=== PATIENT | male | born 1960 | race Caucasian/White ===

== ENCOUNTER → 2019-08-12 10:45 | Outpatient (BNVA) | payer OTHER, SELFPAY | PROVIDERS: Family Provider Nurse Practitioner Family; PCP Nurse Practitioner Family; Visit Provider Registered Nurse | DX: I10 Essential (primary) hypertension (principal); E78.5 Hyperlipidemia, unspecified; R20.0 Anesthesia of skin; R07.9 Chest pain, unspecified; J30.2 Other seasonal allergic rhinitis | CPT/HCPCS: 80053; 80061; 85025 ==

== ENCOUNTER 2020-08-17 10:33 | Outpatient (CLI) | payer OTHER, SELFPAY ==
[2020-08-17 10:48] VITALS: BMI 20.4
--- NOTE | 2020-08-17 10:49 | ECG_ITS ---
[facility] Test Date: 2020-08-17 Pat Name: Navdeep Tomlin Department: Room: Gender: Male Warehouse Selector: Columba Lopez : 1960 Requested By: Kavita Williamson Order Number: [id number] Marla MD: Kavita Williamson M.D. Interpretive Statements NAME OF STUDY: TREADMILL STRESS ECHOCARDIOGRAM INDICATION: Chest Pain Baseline blood pressure of 120/81 mm Hg, heart rate 80 beats per minute and oxygen saturation 97%. EKG showed normal sinus rhythm with artifact with possible old anteroseptal infarct. The patient exercised for 6 minutes 35 seconds on a standard Sunil protocol. Patient attained a maximum heart rate of 143 beats per minute(90% of the maximum predicted heart rate) with a blood pressure at the peak exercise of 150/86 mm Hg and oxygen saturation 98%. The EKG at the peak exercise revealed sinus tachycardia with no significant ST-T wave changes. Artifact throughout exercise. Patient did not have any chest pain or any significant arrhythmis with the exercise. Study was terminated due to exertional fatigue and shortness of breath. During the recovery phase, there were no new changes. PACs noted in recovery. Blood pressure at the end of the recovery phase was 107/75 mm Hg with a heart rate of 84 beats per minute. CONCLUSION: 1. Normal EKG response to treadmill exercise. 2. No significant exercise-induced chest pain or cardiac arrhythmia. 3. Good exercise tolerance, attained a maximum of 10.2 METs. Maximum VO2 of 35.7 mL/kg/min. 4. Baseline normal blood pressure with blunted response to exercise. 5. Echocardiographic portion of the study will be documented separately. Electronically Signed On 08-18-2020 18:00:40 CDT by Kavita Williamson M.D. [id number]
--- NOTE | 2020-08-17 11:34 | USCV_ITS ---
Navdeep Tomlin Age: 60 Gender: M : 1960 Exam Date: 08/17/2020 11:44 Ordering Phys: Kavita Williamson MD ([email or web address]) Technologist: Vicente Arndt [place] [facility] [place]: chest pain Rhythm: Sinus Patient History: hernia repair Cardiac Medications: none Medications in past 24 hours: none Contrast: Stress Results Protocol: Sunil Total dose(mL): Exercise Duration (min:sec): 6:35 METS: 10.2 Resting HR: 80 Resting BP: 120 / 81 Peak HR: 143 Peak BP: 150 / 86 Max Predicted HR: 158 91 % Max Predicted HR Target HR: 134 Double Product: 49252 Stress Summary: The patient's target heart rate was achieved The hemodynamic response to exercise was normal BP Response: Normal Reason for Termination: Test terminated after reaching target heart rate (85% max predicted) Cardiac Symptoms: None ECG Analysis Resting ECG: EKG showed normal sinus rhythm with artifact with possible old anteroseptal infarct. Stress ECG: EKG at peak exercise revealed sinus tachycardia with no significant ST-T wave changes. Artifact noted throughout the exercise. Arrhythmia: PACs noted in recovery. No significant arrhythmias. MEASUREMENTS (Male/Female) Normal Values FINDINGS Baseline echocardiogram: Normal left ventricular size and low normal systolic function with ejection fraction estimated at [50-55%]. Thickened mitral valve. Normal tricuspid valve]. [Normal right ventricular size and systolic function]. No pericardial effusion. Peak exercise echocardiogram: Augmentation of baseline left ventricular systolic function at peak exercise. No new regional wall motion abnormality with stress. Recovery echocardiogram: Left ventricular systolic function returned back to near normal. No new regional wall motion abnormality noted. CONCLUSIONS 1. This is a exercise stress echocardiogram. 2. Patient exercised for 6 minutes 35 seconds on a standard Sunil protocol and reached 10.2 METS. Double product of 21,450. 3. Normal resting echocardiogram. There were no stress-induced wall motion abnormalities. 4. Normal EKG response to treadmill exercise. Blunted blood pressure response to exercise. Refer to separate report for details. Kavita Williamson MD (Electronically Signed) Final Date: 24 Aug 2020 11:57 S
[2020-08-17 11:54] VITALS: BP 125/76; PULSE 78
== END 2020-08-17 10:34 | disposition home or self-care (01) ==
LOC: CDL 10:39
PROVIDERS: Visit Provider Internal Medicine Cardiovascular Disease
DX: R07.9 Chest pain, unspecified (principal)
CPT/HCPCS: 93017; 93350

== ENCOUNTER 2020-10-13 09:19 | Outpatient (CLI) | payer OTHER, SELFPAY ==
--- NOTE | 2020-10-13 10:15 | USCV_ITS ---
Navdeep Tomlin Age: 60 Gender: M : 1960 Exam Date: 10/13/2020 09:55 Ordering Phys: aKvita Williamson MD ([email or web address]) Technologist: Rosa Ponce Exam Location[place] [facility] [place] Indication: DIZZINESS BP: 134 / 70 HR: 68 Rhythm: Sinus Technical Quality: Adequate MEASUREMENTS (Male / Female) Normal Values 2D ECHO LV Diastolic Diameter PLAX 2.9 cm 4.2 - 5.9 / 3.9 - 5.3 cm LV Systolic Diameter PLAX 1.7 cm LV Chamber Size 3.0 cm IVS Diastolic Thickness 0.9 cm 0.6 - 1.0 / 0.6 - 0.9 cm IVS Systolic Thickness 1.6 cm LVPW Diastolic Thickness 1.2 cm 0.6 - 1.0 / 0.6 - 0.9 cm LVPW Systolic Thickness 1.4 cm RV Chamber Size 2.6 cm LVOT Diameter 2.0 cm LV Ejection Fraction 2D Teich 74.5 % LV Ejection Fraction MOD 2C 69.4 % LV Ejection Fraction 2C AL 69.1 % LA Diameter 2.2 cm LA Width 2.5 cm LA Height 2.8 cm RA Width 2.7 cm RA Height 3.4 cm M-MODE LV Diastolic Diameter MM 3.8 cm 4.2 - 5.9 / 3.9 - 5.3 cm LV Systolic Diameter MM 2.1 cm LV Ejection Fraction MM Teich 75.5 % IVS Diastolic Thickness MM 0.8 cm 0.6 - 1.0 / 0.6 - 0.9 cm IVS Systolic Thickness MM 1.4 cm LVPW Diastolic Thickness MM 0.8 cm 0.6 - 1.0 / 0.6 - 0.9 cm LVPW Systolic Thickness MM 1.4 cm RV Diastolic Diameter MM 2.2 cm Aortic Annulus Diameter 3.4 cm LA Ao Ratio MM 0.9 MV E Point Septal Separation 0.2 cm DOPPLER AV Peak Velocity 116.0 cm/s LVOT Peak Velocity 93.0 cm/s AV Area Cont Eq vti 3.0 cm squared AV Area Cont Eq pk 2.6 cm squared MV Area PHT 2.5 cm squared Mitral E to A Ratio 1.2 MV E' Velocity 44.5 cm/s Mitral E to MV E' Ratio 7.9 Mitral E to LV E' Lateral Ratio 6.4 Mitral E to LV E' Septal Ratio 10.4 TR Peak Velocity 167.9 cm/s TR Peak Gradient 11.3 mmHg TR Mean Velocity 141.7 cm/s TR Mean Gradient 8.1 mmHg TR Velocity Time Integral 37.8 cm TV Peak E Velocity 50.0 cm/s Right Atrial Pressure 3.0 mmHg Pulmonary Artery Systolic Pressu 14.3 mmHg PV Peak Velocity 49.0 cm/s RV Acceleration Time 0.2 s RV Ejection Time 0.3 s RV AcT/ET 0.5 FINDINGS Left Ventricle Normal left ventricular size, systolic function and wall thickness. Left ventricular ejection fraction is estimated at 65 %. No regional wall motion abnormalities. Normal diastolic function. Right Ventricle Normal right ventricular size and systolic function. Right ventricular systolic pressure 14.3 mmHg. Right Atrium Normal right atrial size. Left Atrium Normal left atrial size. Mitral Valve Thickened and myxomatous appearing mitral valve. There is possible mild anterior mitral valve prolapse (poor parasternal views). No mitral valve stenosis. Trace mitral valve regurgitation. Redundant chordae. Aortic Valve Aortic valve not well visualized. No aortic valve stenosis. No aortic valve regurgitation. Tricuspid Valve Structurally normal tricuspid valve. No tricuspid valve stenosis. Trace to mild tricuspid valve regurgitation. Redundant chordae. Pulmonic Valve Pulmonic valve not well visualized. No pulmonary valve stenosis. No pulmonary valve regurgitation. Pericardium No pericardial effusion. Aorta Aorta not well visualized. Normal-sized IVC with normal respiratory variation. CONCLUSIONS 1. Normal left ventricular size, systolic function and wall thickness. Left ventricular ejection fraction is estimated at 65 %. No regional wall motion abnormalities. Normal diastolic function. 2. Normal right ventricular size and systolic function. 3. Thickened and myxomatous appearing mitral valve. There is possible mild anterior mitral valve prolapse (poor parasternal views). Trace mitral valve regurgitation. Redundant chordae. 4. Normal pulmonary artery pressure. 5. No prior similar studies to compare. Kavita Williamson MD (Electronically Signed) Final Date: 16 October 2020 13:36 S
--- NOTE | 2020-10-13 11:00 | USCV_ITS ---
Navdeep Tomlin Age: 60 Gender: M : 1960 Exam Date: 10/13/2020 09:29 Ordering Phys: Kavita Williamson MD ([email or web address]) Technologist: Rosa Ponce [place] [facility] [place]ZZ[place] Risk Factors: Unknown Previous Vascular Surgery: None Right Brachial BP: / Left Brachial BP: / Right Left Velocity (cm/s) Spectral Plaque Velocity (cm/s) Spectral Plaque Syst/Diast Broadening Syst/Diast Broadening 142.20/33.70 Prox CCA 50.10 / 14.60 115.80/32.20 Mid CCA 98.60 / 40.80 97.60/ 21.00 Distal CCA 99.90 / 22.30 151.00/26.40 Prox ICA 75.40 / 25.60 97.00/ 25.50 Mid ICA 80.00 / 37.30 102.40/36.60 Distal ICA 83.10 / 34.20 97.60 ECA 71.50 1.30 ICA/CCA 0.84 Antegrade Vertebral Antegrade 31.20/ 12.60 cm/s 39.60/ 13.20 cm/s Tri Subclavian Tri 101.3 113.1 0 0 FINDINGS Comparison: none available. Diffuse, mild bilateral scattered calcified plaque and intimal thickening throughout the common carotid arteries and extending through the bifurcation. Slightly greater disease on the right. Antegrade vertebral arteries. CONCLUSIONS Bilateral ICA stenosis less than 50%. Dr. Nica Andrews DO (Electronically Signed) Final Date: 13 October 2020 11:59 S
== END 2020-10-13 09:20 | disposition home or self-care (01) ==
LOC: RAD 09:23
PROVIDERS: PCP Nurse Practitioner Family; Visit Provider Internal Medicine Cardiovascular Disease
DX: R42 Dizziness and giddiness (principal); I65.23 Occlusion and stenosis of bilateral carotid arteries; I05.9 Rheumatic mitral valve disease, unspecified
CPT/HCPCS: 93306; 93880

== ENCOUNTER → 2021-03-23 09:05 | Outpatient (BNVA) | payer OTHER, SELFPAY | PROVIDERS: PCP Nurse Practitioner Family; Visit Provider Internal Medicine Cardiovascular Disease | DX: Z01.818 Encounter for other preprocedural examination (principal); I65.29 Occlusion and stenosis of unspecified carotid artery; R07.9 Chest pain, unspecified; E78.5 Hyperlipidemia, unspecified; I34.1 Nonrheumatic mitral (valve) prolapse; Z20.822 Contact with and (suspected) exposure to COVID-19 | CPT/HCPCS: 80048; 85025; 85610; 87635 ==

== ENCOUNTER 2021-04-01 05:50 | Outpatient (CLI) | payer OTHER, SELFPAY ==
[2021-04-01] VITALS (16 sets, daily range): BP systolic 98–123; BP diastolic 66–78; PULSE 55–73; RESP 13–18; TEMP 36.4; O2SAT 92–100
--- NOTE | 2021-04-01 06:00 | XACV_ITS ---
Ht: 185 cm Wt: 69 kg BSA: 1.87 m2 Gender: Male : 1960 Any Known Allergies: Other Exam Priority: Routine Procedure(s): Procedure Description: Diagnostic procedure Procedure Description: Left Heart Catheterization Procedure Description: Left ventriculography Procedure Description: Coronary Angiography Diagnostic Cath Status: Elective Diagnostic Findings * No disease noted in the Left Main, Left Anterior Descending, Right, or Circumflex coronary arteries. . * Significant mid LAD bridging of mid LAD. * Coronary angiography shows right dominance. Conclusions 1. No disease noted in the Left Main, Left Anterior Descending, Right, or Circumflex coronary arteries. . 2. Significant intramyocardial bridging of mid LAD. 3. Normal left ventricular systolic function. Ejection fraction of 60%. Recommendations * Aggressive medical therapy. * Outpatient cardiology follow up in 4 weeks. Interventional RX Recommendation: medical therapy and/or counseling Diagnostic RX Recommendation: medical therapy and/or counseling Anticoagulation: Heparin Ventriculography Ejection Fraction: 60.0 % Pressures Phase:Rest AO : 104 / 60 ( 72 ) @ 6:49:00 AM 107 / 73 ( 89 ) @ 6:57:00 AM 106 / 70 ( 87 ) @ 6:57:00 AM LV : 116 / 0 / 12 @ 6:56:00 AM 118 / 7 / 19 @ 6:57:00 AM 125 / 6 / 19 @ 6:57:00 AM Valves Phase:DefaultPhase AV : 18.0 @ 9:02:33 AM AV Mean Gradient: 15.0 @ 9:02:33 AM Clinical Evaluation EBL: 5mL-10mL Procedural Details Procedure Consent Obtained. Pre-Procedure Time Out. Identified patient by full name and date of as verbalized by the patient/guarantor. Does the consent match the physician's order: Yes. Accurate & Complete Informed Consent: Yes. Inpatient/Outpatient History & Physical on Chart: Yes. If H&P is completed, is and addenduem needed: No; If yes, is the addendum complete: N/A. Visualize and Verify Site with Patient/Guarantor: N/A. Relevant Radiology Images available: N/A. Pre-op teaching completed and patient verbalized understanding. The risks, benefits, and alternatives of sedation and/or procedure were discussed by physician. The patient agrees to continue. Procedure started. Félix Ham will be technical sales manager for procedure. [facility] Clinical Fraility Score: 3: Managing Well. Supervisor Electrolytic Tinning Indications: New Onset Angina. Chest Pain Symptom Assessment: Atypical Angina. Cardiovascular Instability: No,. Correct patient, site and procedure confirmed by cath team. PERRLA. Strong, equal hand senior director of strategy bilaterally. Lungs clear x 5 lobes. IV Site on Arrival: 20 gauge in the right anticubital. IV Fluids: 0.9% NaCl at KVO. 0 mL infused prior to photofinishing laboratory worker. Pre Procedural Pulses: bilateral dorsalis pedis was 3+. Pre Procedural Pulses: right posterior tibial was 3+. Pre Procedural Pulses: left posterior tibial was 1+. Pre Procedural Pulses: bilateral radial was 3+. Oxygen started at 2liters/min via nasal canula. right radial was prepped with chloroprep then draped in the usual sterile fashion. right brachial was prepped with chloroprep then draped in the usual sterile fashion. Physician notified. Baseline sample Acquired. HR: 0 BPM. Physician arrived. Equipment: 6F - Radial. Cardiac Cath Pack. ACIST Manifold Kit Model BT 2000. Heparinized Saline (2 units/mL), 1000 mL bag. Physician scrubbed in. Immediate Pre-Procedure Time Out. Correct Patient: Yes; Correct Procedure: Yes; Correct Site: Yes; Correct Patient Position: Yes; Correct Supplies: Yes; Dried Flammable Prep: Yes; Blood Products Available: N/A;. Lidocaine 1% infiltrated to the right radial. Arterial access obtained. A 5 mongolian TIG catheter in over wire. Multiple views taken of left coronary artery. Catheter redirected to the RCA. Multiple views taken of right coronary artery. Catheter removed over the exchange wire. A 5 mongolian Angled Pig catheter in over wire. EDP Sample taken: LV 116/-1,12; HR: 73 BPM; SpO2: Off%. LV gram performed in PATE @ 10 mL/second for a total of 30 mL. EDP Sample taken: LV 118/7,19; HR: 60 BPM; SpO2: Off%. Pullback taken: LV 125/6,19; AO 107/73(89); Mean: 15mmHg, Peak to Peak: 18mmHg, SEP: 7sec/min; HR: 73 BPM; SpO2: Off%. Catheter removed over the exchange wire. Physician scrubbed out. A TR Band was successful obtaining hemostatsis at the Right Radial artery insertion site. TR band placed. Hemostasis obtained. Post Procedure: Pulses reassessed and unchanged. PERRLA. Strong, equal hand senior director of strategy bilaterally. No VTE prophylaxis required. Medication's Wasted: Lidocaine 1% = 18 mL. Medication's Wasted: Nitro = 49.8 mg. Medication's Wasted: Heparin = 1000 units. Total IV fluids: 50 mL. Contrast type used: Visipaque 320 mgI/mL, 500 mL bottle. Post-op diagnosis: normal coronaries. Complications: none. Estimated blood loss: 5mL-10mL. Procedure completed. Patient transferred by wheelchair to 1st floor. Vital chart was stopped. Access Site Site: Right Radial artery Sheath Size: 6 Fr Hemostasis Method: TR Band Hemostasis Success: Successful Procedure Medications Start: 8:33 AM Stop: 8:33 AM Medication: Versed 1 mg and Fentanyl 25 mcg Amount: 1 Route: I.V. Start: 8:39 AM Stop: 8:39 AM Medication: Versed Amount: 1 mg Route: I.V. Start: 8:47 AM Stop: 8:47 AM Medication: Nitrogylcerin Amount: 200 mcg Route: I.A. Start: 8:49 AM Stop: 8:49 AM Medication: Heparin Amount: 5000 units Route: I.V. Start: 8:52 AM Stop: 8:52 AM Medication: Fentanyl Amount: 50 mcg Route: I.V. Start: 8:58 AM Stop: 8:58 AM Medication: Fentanyl Amount: 25 mcg Route: I.V. I, the attending physician, have reviewed and verified all procedure medications. Yes, all medications given per verbal order History/Risk Factors Hypertension: No Dyslipidemia: Yes Peripheral Arterial Disease (PAD): No Myocardial Infarction (DC): No Obesity: No Renal Disease: No Tobacco Use: Former Prior Interventions PCI: No CABG: No Valve Surgery: No Report Signatures Finalized by Casey Carbajal MD on 04/05/2021 04:31 PM
[2021-04-01] MEDS: diphenhydrAMINE 50 mg Capsule PO (06:23)
--- NOTE | 2021-04-01 08:41 | W.PM.OPSUD ---
Surgery/Procedure H&P Update DATE OF PROCEDURE: April 01, 2021 DATE H&P PERFORMED: 03/10/21 H&P UPDATE INFORMATION: I have reviewed H&P completed within last 30 days, I have examined patient prior to procedure and No changes to prior documentation PREOP DIAGNOSIS: Chest pain PRIMARY INDICATION FOR PROCEDURE: Chest pain PLANNED PROCEDURE: Operation Date: 04/01/21 07:00 Proposed Procedures p Cardiac Catheterization(Left) - Casey Carbajal M.D Possible percutaneous coronary intervention PATIENT REASSESSED PRIOR TO SEDATION, WITH NO CHANGE NOTED: Yes PHYSICAL EXAM: alert, oriented x 3, clear to auscultation bilaterally and regular rate & rhythm AIRWAY EVAL/ANESTHESIA PLAN: ASA III, Monitored Anesthesia, Local Anesthesia, Risks, benefits & alternatives of sedation and/or procedure discussed and Patient agrees to continue as planned
--- NOTE | 2021-04-01 09:15 | PC.NURSE ---
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 tr band on right wrist with distal pulses present. pt complains of no pain. pt and family at bedside educated on restrictions of right wrist. both acknowledged understanding. will re-educated throughout recovery. pt monitored per protocol.
== END 2021-04-01 12:51 | disposition home or self-care (01) ==
PROVIDERS: PCP Nurse Practitioner Family; Visit Provider Internal Medicine
DX: R07.9 Chest pain, unspecified (principal); E78.5 Hyperlipidemia, unspecified; I34.1 Nonrheumatic mitral (valve) prolapse; I65.29 Occlusion and stenosis of unspecified carotid artery
CPT/HCPCS: 36415; 93452; C1769; C1887; C1894; J1644; J2250; J3010; J3490; J7030; Q0163; Q9967

== ENCOUNTER → 2021-04-08 14:56 | Outpatient (BNVA) | payer OTHER, SELFPAY | PROVIDERS: PCP Nurse Practitioner Family; Visit Provider Nurse Practitioner Family | DX: R07.9 Chest pain, unspecified (principal) | CPT/HCPCS: 80048 ==

== ENCOUNTER → 2022-02-03 10:42 | Outpatient (BNVA) | payer OTHER, SELFPAY | PROVIDERS: Visit Provider Registered Nurse Neonatal Intensive Care | DX: J02.9 Acute pharyngitis, unspecified (principal); J30.2 Other seasonal allergic rhinitis | CPT/HCPCS: 87880 ==

== ENCOUNTER 2023-08-17 12:22 | Outpatient (CLI) | payer MEDICARE, SELFPAY ==
[2023-08-17 12:30] VITALS: BMI 19.8
--- NOTE | 2023-08-17 12:38 | ECG_ITS ---
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 Interpretive Statements NAME OF STUDY: TREADMILL STRESS TEST INDICATION: Shortness of Breath, PROCEDURE: At the baseline, the patient's blood pressure was 118/83 with a heart rate of 78. The baseline electrocardiogram showed normal sinus rhythm with normal ST-Ts. Possible old anteroseptal CT. The patient exercised for 7 minutes and 42 seconds on a standard Sunil protocol. Patient attained a maximum heart rate of 135 beats per minute(87% of the maximum predicted heart rate) with a blood pressure at the peak exercise of 157/61 mm Hg. The EKG at the peak exercise revealed no significant changes. Patient did not have any chest pain or any significant cardiac arrhythmias with the exercise During the recovery phase, there were no new changes. Blood pressure at the end of the recovery phase was 143/76 mm Hg with a heart rate of 96 per minute. CONCLUSION: 1. No significant EKG changes with the treadmill exercise 2. No exercise-induced chest pain or cardiac arrhythmia 3. Fair exercise tolerance, attained a maximum of 10.2 METs Electronically Signed On 08-21-2023 23:54:27 CDT by Anya Tenorio M.D. [id number]
[2023-08-17 13:01] VITALS: BP 118/88; PULSE 91
== END 2023-08-17 12:23 | disposition home or self-care (01) ==
LOC: CDL 12:24
PROVIDERS: PCP Nurse Practitioner Family; Visit Provider Nurse Practitioner Family
DX: R07.9 Chest pain, unspecified (principal); R06.02 Shortness of breath
CPT/HCPCS: 93017

== ENCOUNTER 2023-08-18 15:03 | Outpatient (CLI) | payer MEDICARE, SELFPAY ==
--- NOTE | 2023-08-18 15:15 | USCV_ITS ---
Navdeep Tomlin Age: 63 Gender: M : 1960 Exam Date: 08/18/2023 16:06 Ordering Phys: Félix Sullivan Technologist: Greg Dahl Exam Location: [facility] [place] Indication: malformation of coronary arteries BP: 111 / 71 HR: 72 Rhythm: Sinus Technical Quality: Adequate MEASUREMENTS (Male / Female) Normal Values 2D ECHO LV Diastolic Diameter PLAX 4.4 cm 4.2 - 5.9 / 3.9 - 5.3 cm IVS Diastolic Thickness 0.7 cm 0.6 - 1.0 / 0.6 - 0.9 cm IVS Systolic Thickness 0.9 cm LVPW Diastolic Thickness 1.0 cm 0.6 - 1.0 / 0.6 - 0.9 cm LVPW Systolic Thickness 2.0 cm LVOT Diameter 2.0 cm LV Ejection Fraction 2D Teich 64.8 % LV Ejection Fraction MOD 2C 60.6 % LV Ejection Fraction 2C AL 59.8 % LA Diameter 3.0 cm RA Systolic Volume 4C AL 35.3 ml RA Systolic Volume 4C MOD 34.3 ml LA Sys Volume AL 41.7 cm cubed LA Sys Volume Index AL 22.7 cm cubed/m squared Aorta at Sinotubular Diameter 2.3 cm IVC Diameter 2.6 cm M-MODE LA Ao Ratio MM 1.0 MV E Point Septal Separation 1.1 cm AV Cusp Separation MM 1.6 cm DOPPLER AV Peak Velocity 98.0 cm/s LVOT Peak Velocity 75.0 cm/s AV Area Cont Eq vti 2.4 cm squared AV Area Cont Eq pk 2.4 cm squared MV Peak Velocity 72.0 cm/s MV Area PHT 4.9 cm squared Mitral E to A Ratio 0.8 PV Peak Velocity 74.0 cm/s RV Ejection Time 0.3 s FINDINGS Left Ventricle Normal left ventricular size and systolic function, EF 64%.no regional wall motion abnormalities. Grade I/IV diastolic dysfunction (abnormal relaxation filling pattern), normal to mildly elevated filling pressures. Right Ventricle The right ventricle is normal in size and function. Right Atrium Echodensity in the right atrium, possibly represent a prominent eustachian valve rudiment. Left Atrium The left atrium is normal in size. Mitral Valve Thickened anterior mitral leaflet.trace mitral valve regurgitation. Aortic Valve No gross abnormalities noted Tricuspid Valve Trace tricuspid valve regurgitation. Pulmonic Valve Pulmonic valve not well visualized. Pericardium Normal pericardium without effusion. Aorta Normal ascending aorta dimension. IVC Normal inferior vena cava. CONCLUSIONS Normal left ventricular size and systolic function, EF 64%.no regional wall motion abnormalities. Grade I/IV diastolic dysfunction (abnormal relaxation filling pattern), normal to mildly elevated filling pressures. Echodensity in the right atrium, possibly represent a prominent eustachian valve rudiment. Thickened anterior mitral leaflet.trace mitral valve regurgitation. Trace tricuspid valve regurgitation. There is no pericardial effusion. There are no intracardiac masses. Compared to the previous study from 10/13/2020, there may not be a significant change Dr Anya Tenorio MD [facility] (Electronically Signed) Final Date: 19 August 2023 20:24 S
== END 2023-08-18 15:04 | disposition home or self-care (01) ==
LOC: RAD 15:03
PROVIDERS: PCP Nurse Practitioner Family; Visit Provider Nurse Practitioner Family
DX: Q24.5 Malformation of coronary vessels (principal); I34.1 Nonrheumatic mitral (valve) prolapse; I07.1 Rheumatic tricuspid insufficiency
CPT/HCPCS: 93306

== ENCOUNTER → 2023-08-23 09:26 | Outpatient (BNVA) | payer MEDICARE, SELFPAY | PROVIDERS: PCP Nurse Practitioner Family; Visit Provider Surgery | DX: Z12.11 Encounter for screening for malignant neoplasm of colon (principal) | CPT/HCPCS: 99024; 99203; 99204 ==

== ENCOUNTER 2023-11-30 08:19 | Day surgery (SDC) | payer MEDICARE, SELFPAY ==
[2023-11-30 08:35] VITALS: BP 131/79; PULSE 87; RESP 18; TEMP 36.1; O2SAT 97; BMI 21.1
--- NOTE | 2023-11-30 08:38 | W.PM.OPSFHP ---
Same Day Surgery H&P Indication for Procedure/HPI DATE OF PROCEDURE: November 30, 2023 CHIEF COMPLAINT/INDICATIONFOR SURGICAL PROCEDURE: need for screening colonoscopy PREOP DIAGNOSIS: need for screening colonoscopy PLANNED PROCEDURE: Operation Date: 11/30/23 09:30 Proposed Procedures p Colonoscopy 06560, G0121, Z12.11(Not Applicable) - Rolando Gillette MD Medications/Allergies* Home Medications Medication Instructions Recorded Confirmed Type aspirin 81 mg tablet,delayed 81 mg PO DAILY 08/23/23 11/30/23 History release Allergies/Adverse Reactions Allergy/AdvReac Type Severity Reaction Status Date / Time acetaminophen [From Tylenol] Allergy Unknown Verified 08/23/23 09:32 Sulfa (Sulfonamide Allergy Unknown Verified 08/23/23 09:32 Antibiotics) Pertinent History/Comorbid Conditions* Medical History (Updated 08/10/23 @ 11:13 by HESHAM Garcia) Myocardial bridge Dyslipidemia Dizziness Surgical History (Updated 07/25/20 @ 17:30 by Kavita Williamson MD) Hx of hernia repair Family History (Updated 07/23/20 @ 15:13 by Tahira Amaya RN) Diabetes Mother Valvular heart disease Father Mother Hypertension Mother Denies family history of Stroke Social History Smoking and tobacco/nicotine status: former use of tobacco/nicotine Alcohol intake: never Substance/Drug Use: never Pertinent Exam Findings alert, oriented x 3 and clear to auscultation bilaterally Recommendations Surgery/Procedure today Coding Level of Care Code Acute Code for Chg Fwd
[2023-11-30] MEDS: sodium chloride 0.9% 1,000 ML 30 ML IV (08:42)
--- NOTE | 2023-11-30 09:24 | ANES.PREANE2 ---
Pre-Anesthetic Assessment Height/Weight: Height 1.85 m Weight 72.575 kg Temp Pulse Resp BP Pulse Ox O2 Del Method 97.0 F L 87 18 131/79 97 Room Air 11/30/23 08:35 11/30/23 08:35 11/30/23 08:35 11/30/23 08:35 11/30/23 08:35 11/30/23 08:35 Preop Diagnosis: need for screening colonoscopy Operation Date: 11/30/23 09:30 Proposed Procedures p Colonoscopy 03502, G0121, Z12.11(Not Applicable) - Rolando Gillette MD Was Beta Mirtha taken within 24 hours: N/A Was Clonidine taken within 24 hours: N/A Last intake: Intake Last Liquid Date 11/30/23 Last Liquid Time 01:00 Last Solid Date 11/28/23 Last Solid Time 18:00 Social No alcohol and No tobacco Exam alert, oriented x 3, clear to auscultation bilaterally and regular rate & rhythm Airway Submandibular: within normal limits Cervical ROM: within normal limits Mallampati: Class II Dentition: false Comments: Comments: Dentures. Already removed History/ROS No significant history except as noted Pulmonary Shortness of Breath CV/HEM None reported None reported Hepatic None reported GI None reported Metabolic None reported Musc/skel None reported Neuropsych None reported Anesthetic Plan ASA status: 2 Anesthesia: MAC Risk of > 500 ml blood loss (7ml/kg in children): No Medications/Allergies Home Medications Medication Instructions Recorded Confirmed Last Taken Type aspirin 81 mg tablet,delayed 81 mg PO DAILY 08/23/23 11/30/23 11/29/23 History release bisacodyl 5 mg tablet,delayed 5 mg PO DAILY #4 tabs 08/23/23 11/30/23 11/29/23 Rx release (Dulcolax (bisacodyl)) magnesium citrate 300 ml PO DAILY PRN constipation 08/23/23 11/30/23 11/29/23 Rx #296 mL Allergies Allergy/AdvReac Type Severity Reaction Status Date / Time acetaminophen [From Tylenol] Allergy Unknown Verified 08/23/23 09:32 Sulfa (Sulfonamide Allergy Unknown Verified 08/23/23 09:32 Antibiotics) Current Medications Generic Name Dose Route Start Last Admin Trade Name Freq PRN Reason Stop Dose Admin Sodium Chloride 1,000 mls @ 30 mls/hr 11/30/23 08:30 11/30/23 08:42 Sodium Chloride 0.9% IV 30 mls/hr .Q24H ADELINA Administration PFSH Anesthesia Medical History Myocardial bridge Dyslipidemia Dizziness Surgical History Hx of hernia repair Family History Father Valvular heart disease Mother Valvular heart disease Hypertension Diabetes Denies family history of Stroke Social History Smoking and tobacco/nicotine status: former use of tobacco/nicotine Alcohol intake: never Substance/Drug Use: never Data Anesthesia Cardiac Studies: Echocardiogram 08/18/23 Echocardiogram Ultrasound 10/13/20 Stress Echocardiogram 08/17/20 Cardiac Event Monitor 08/25/20
[2023-11-30 10:02] VITALS: BP 94/58; PULSE 88; RESP 14; TEMP 36.2; O2SAT 98
[2023-11-30 10:16] VITALS: BP 109/59; PULSE 81; RESP 16; O2SAT 96
[2023-11-30 10:28] VITALS: BP 135/85; PULSE 78; RESP 18; O2SAT 99
--- NOTE | 2023-11-30 10:50 | ANE.PACU2 ---
Inpatient post-anesthesia follow up: Airway intact: Yes Vital signs: Temperature 97.1 F Pulse Rate 78 Respiratory Rate 18 Blood Pressure 135/85 Pulse Oximetry 99 Oxygen Delivery Me thod Room Air Oxygen Flow Rate Fraction of Inspir ed Oxygen Hydration adequate: Yes Nausea and vomiting: No Pain level: 1 Mental status: Baseline
== END 2023-11-30 10:54 | disposition home or self-care (01) ==
PROVIDERS: PCP Nurse Practitioner Family; Visit Provider Surgery
PROC: 0DJD8ZZ Inspection of Lower Intestinal Tract, Via Natural or Artificial Opening Endoscopic (ICD-10-PCS; CPT 45378; principal; 2023-11-30 09:30)
DX: Z12.11 Encounter for screening for malignant neoplasm of colon (principal); E78.5 Hyperlipidemia, unspecified; Z87.891 Personal history of nicotine dependence
CPT/HCPCS: G0121; J2704; J7030

== ENCOUNTER → 2024-02-14 08:21 | Outpatient (BNVA) | payer MEDICARE, SELFPAY | PROVIDERS: PCP Nurse Practitioner Family; Visit Provider Surgery | DX: K46.9 Unspecified abdominal hernia without obstruction or gangrene | CPT/HCPCS: 99204; 99214 ==

== ENCOUNTER 2024-02-19 07:11 | Day surgery (SDC) | payer MEDICARE, SELFPAY ==
[2024-02-19] VITALS (10 sets, daily range): BP systolic 95–125; BP diastolic 63–87; PULSE 69–81; RESP 16–18; TEMP 36.3–37.1; O2SAT 95–100; BMI 19.1
--- NOTE | 2024-02-19 07:23 | W.PM.OPSUD ---
Surgery/Procedure H&P Update DATE OF PROCEDURE: February 19, 2024 DATE H&P PERFORMED: 02/14/24 H&P UPDATE INFORMATION: I have reviewed H&P completed within last 30 days, I have examined patient prior to procedure, No changes to prior documentation and H&P is in [facility] on date indicated PLANNED PROCEDURE: Operation Date: 02/19/24 08:55 Proposed Procedures p Open Inguinal Hernia Repair w/ Mesh 02135, K40.90(Left) - Rolando Gillette MD
--- NOTE | 2024-02-19 07:32 | P.ANESASSM_ITS ---
Pre-Anesthetic Assessment Height/Weight: Height 6 ft 1 in Operation Date: 02/19/24 08:55 Proposed Procedures p Open Inguinal Hernia Repair w/ Mesh 33953, K40.90(Left) - Rolando Gillette MD Social No alcohol and No tobacco Exam alert, oriented x 3, clear to auscultation bilaterally and regular rate & rhythm Airway Submandibular: within normal limits Cervical ROM: within normal limits Mallampati: Class I Dentition: other (Edentulous) Anesthetic Plan ASA status: 2 Anesthesia: General Other: No prior issues with anesthesia NPO since yesterday Patient had a colonoscopy in November without issues Stress test in July 2023 was negative, echo showing EF 64% Allergy to Tylenol, states he gets heart palpitations METs greater than 4 Plan for general anesthesia Medications/Allergies Home Medications Medication Instructions Recorded Confirmed Last Taken Type aspirin 81 mg tablet,delayed 81 mg PO DAILY 08/23/23 02/16/24 02/12/24 History release Allergies Allergy/AdvReac Type Severity Reaction Status Date / Time acetaminophen [From Tylenol] Allergy Unknown Verified 02/16/24 13:12 Sulfa (Sulfonamide Allergy Unknown Verified 02/16/24 13:12 Antibiotics) [facility] Anesthesia Medical History Myocardial bridge Dyslipidemia Dizziness Surgical History Hx of hernia repair Family History Father Valvular heart disease Mother Valvular heart disease Hypertension Diabetes Denies family history of Stroke Social History Smoking and tobacco/nicotine status: never used tobacco/nicotine Alcohol intake: never Substance/Drug Use: never Data Anesthesia Cardiac Studies: Echocardiogram 08/18/23 Echocardiogram Ultrasound 10/13/20 Stress Echocardiogram 08/17/20 Cardiac Event Monitor 08/25/20
[2024-02-19] MEDS: sodium chloride 0.9% 1,000 ML 30 ML IV (07:53)
[2024-02-19] MEDS: ceFAZolin 2,000 mg SDV 2000 MG IVP (08:18)
[2024-02-19] MEDS: lidocaine-epi 1% 20 mL INJ INJECTION (08:30)
[2024-02-19] MEDS: BUPivacaine 0.25% INJ 10 mL INJECTION (08:30)
--- NOTE | 2024-02-19 10:10 | PM.OP ---
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 Procedure done: Open left inguinal hernia repair with mesh Implants: Bard polypropylene mesh Specimens removed/disposition: lipoma of the cord Surgeon: Rolando Gillette MD Vice President Sales And Marketing: MARY KATE OR Staff Estimated blood loss: 10 Complications: None apparent Brief History: This was a 63-year-old male who presented to my office with a left inguinal hernia, after discussion we will resume benefits with side to proceed with an open repair. Procedure: Patient was brought into the OR, he was placed in a supine position. General anesthesia was given. The abdomen was prepped and draped in the usual sterile fashion. Timeout was conducted. Anatomic landmarks of the left groin were identified and a prospective incision was marked, I made a centimeter incision on the left groin overlying the area corresponding to the external inguinal ring and up to the area corresponding to the internal ring. The incision was deepened to the subcutaneous tissue, hemostasis was achieved, Kelly's fascia was opened with electrocautery, the aponeurosis of the external oblique was identified. I made a small melinda with a 15 blade and then I proceeded to open the aponeurosis of the external oblique with a Metzenbaum scissor to prevent injury to the underlying structures. I then dissected the cord and structures from the inguinal canal using peanuts, the cord structures were able to be completely encircle and a Clio was used to retract them. The ilioinguinal nerve was identified and preserved during this process. The floor of the canal appeared healthy, there was no direct component. I then proceeded to open the cremaster fibers following the direction of the fibers, with careful blunt dissection I was able to identify an indirect hernia sac, the sac was dissected from the cord structures up to the level of the internal ring. The sac was then twisted and ligated with #2-0 Vicryl. I then pushed the sac into the preperitoneal space. Additional exploration of the cord structures show evidence of 2 small cord lipomas that were excised with electrocautery after being ligated with 2-0 Vicryl. At this point I proceeded to obtain hemostasis, once I was satisfied with hemostasis I placed a mesh in the floor of the canal and I used the tails of the mesh to encircle the cord recreating an internal ring. The mesh was then fixed with #0 Prolene to the pubic tubercle medially, with #2-0 Prolene to the shelving edge of the inguinal ligament and inferior directions, to the conjoined tendon in the superior direction, and the tails of the mesh were joined together on the lateral direction. The cord structures were returned to the anatomic position and hemostasis was verified. Local anesthesia was infiltrated. I then proceeded to close the aponeurosis of the external oblique with #2 Vicryl, careful consideration was made to leave theat the level of the external ring for the cord structures. I then proceeded to close the wound in layers after hemostasis was obtained, I did this with #3-0 Vicryl for the Kelly's fascia and subcutaneous tissue and #4 Monocryl for the skin. Dermabond was applied and a sterile dressing was applied. At the end of the procedure all counts were correct, the patient tolerated well the procedure was transferred to the PACU in stable condition.
--- NOTE | 2024-02-19 11:28 | ANE.PACU2 ---
Inpatient post-anesthesia follow up: Airway intact: Yes Vital signs: Temperature 97.4 F Pulse Rate 79 Respiratory Rate 18 Blood Pressure 108/68 Pulse Oximetry 98 Oxygen Delivery Me thod Room Air Oxygen Flow Rate Fraction of Inspir ed Oxygen Hydration adequate: Yes Nausea and vomiting: No Pain level: 2 Mental status: Baseline
== END 2024-02-19 11:28 | disposition home or self-care (01) ==
PROVIDERS: PCP Nurse Practitioner Family; Visit Provider Surgery
PROC: (CPT 49505; principal; 2024-02-19 08:45)
DX: K40.90 Unilateral inguinal hernia, without obstruction or gangrene, not specified as recurrent (principal); D17.6 Benign lipomatous neoplasm of spermatic cord; E78.5 Hyperlipidemia, unspecified
CPT/HCPCS: 49505; 88304; J0690; J1100; J1171; J1885; J2405; J2704; J3010; J3490; J7030

== ENCOUNTER → 2024-03-06 08:03 | Outpatient (BNVA) | payer MEDICARE, SELFPAY | PROVIDERS: PCP Nurse Practitioner Family; Visit Provider Surgery | DX: R03.0 Elevated blood-pressure reading, without diagnosis of hypertension (principal) | CPT/HCPCS: 99024 ==

== ENCOUNTER 2024-06-02 17:00 | Emergency (ER) | payer MEDICARE, SELFPAY ==
[2024-06-02 17:09] VITALS: BP 127/76; PULSE 73; RESP 17; TEMP 36.5; O2SAT 99; BMI 19.8
--- NOTE | 2024-06-02 17:55 | ECG_ITS ---
[employer] Test Date: 2024-06-02 Pat Name: Navdeep Tomlin Department: Room: Gender: Male [employer] [place]: : 1960 Requested By: Luis Horta Order Number: [id number] Gutiérrez MD: DWAINE MONTANO Measurements Intervals [place] Rate: 69 P: 73 TX: 181 QRS: 18 QRSD: 75 T: 60 QT: 367 QTc: 393 Interpretive Statements SINUS RHYTHM ANTEROSEPTAL MYOCARDIAL INFARCTION , OF INDETERMINATE AGE [40+ ms Q WAVE IN V1-V4] INTERPRETATION BASED ON A DEFAULT AGE OF 40 YEARS Compared to ECG 10/19/2015 12:29:50 Myocardial infarct finding now present Electronically Signed On 06-02-2024 21:05:44 ORTHOPEDIC TECH by DWAINE MONTANO [email or web address]
--- NOTE | 2024-06-02 21:07 | ED_ITS ---
Documented by User: Luis Horta DO 06/02/24 22:10 HPI - Nausea/Vomiting/Diarrhea 2 General: Chief complaint: Nausea/Vomiting/Diarrhea Stated complaint: n/v/d Time Seen by Provider: 06/02/24 20:56 Source: patient and family Mode of arrival: ambulatory Limitations: no limitations History of Present Illness: This patient made his way to the emergency department today because of a couple of concerns. He states that he had normal bowel movements approximately week ago and then this past 3 days he has had 2 or 3 stools daily which seem to be yellow to him. He states there has been no blood in his stools. He denies any change in his diet. He states he has eaten his normal diet. He has no vomiting. No known exposure to infectious disease although his grandchildren have had upper respiratory symptoms. He has had no abdominal surgeries other than a hernia repair earlier this year. No recent travel, antibiotic use etc. In fact he takes no prescribed medications. He is not a tobacco user. He also states he is having occasional episodes of chest pain which are unpredictable in nature predominantly in his left chest without radiation without associated diaphoresis, shortness of breath, cough fever etc. States the pains are not ripping or tearing they are pressure-like. He states he has not had chest pains in the past even with exertion. States he has been told he had a valve that was not working correctly in the past but no other cardiovascular issues. Associated nausea: No Associated symtoms: Reports chest pain; Denies dysuria, headache(s), nausea, palpitations or syncope Related Data Home Medications ?Medication ?Instructions ?Recorded ?Confirmed aspirin 81 mg tablet,delayed 81 mg PO DAILY 08/23/23 1 05/06/23 release Previous Rx's ?Medication ?Instructions ?Recorded calcium polycarbophil 625 mg 1,250 mg (2 x 625 mg) PO BID #60 06/02/24 tablet (Fiber-Tabs) tabs Allergies Allergy/AdvReac Type Severity Reaction Status Date / Time acetaminophen (From Tylenol) Allergy Unknown Verified 03/06/24 08:06 Sulfa (Sulfonamide Allergy Unknown Verified 03/06/24 08:06 Antibiotics) Review of Systems 2 Const: Denies: fever(s) or chills ENMT: Denies: throat pain, odynophagia, nasal discharge or nasal congestion Card: Reports: chest pain; Denies: palpitations, irregular heart rhythm, syncope or pre-syncope Resp: Denies: dyspnea, productive cough or non-productive cough GI: Reports: change in stool character; Denies: abdominal pain, nausea, vomiting, diarrhea, hematochezia, melena or steatorrhea : Denies: flank pain, difficulty urinating, dysuria or urinary frequency Musc: Denies: neck pain, back pain, extremity pain or extremity swelling Skin/Breast: Denies: rash Neuro: Denies: headache(s), numbness in extremities or weakness in extremities Domingo/Lymph: Denies: easy bruising or easy bleeding PFSH ED 2 PFSH: Medical History Myocardial bridge Dyslipidemia Dizziness Surgical History Hx of hernia repair Family History Father Valvular heart disease Mother Valvular heart disease Hypertension Diabetes Denies family history of Stroke Social History Smoking and tobacco/nicotine status: never used tobacco/nicotine Alcohol intake: never Substance/Drug Use: never Physical Exam 2 Narrative: EXAM NARRATIVE: The patient is alert appears very comfortable answers questions in an appropriate fashion. Const: COMMON NORMALS: no acute distress, average body habitus and patient oriented x3 GENERAL APPEARANCE: cooperative and comfortable HENMT: COMMON NORMALS: normocephalic, Normal nasal mucous membranes and turbinates present, moist oral mucous membranes and oropharynx normal HEAD & SCALP: normocephalic NOSE: Normal nasal mucous membranes and turbinates present Eye: COMMON NORMALS: Equal, round and reactive pupils present, conjunctivae normal and no scleral icterus CONJUNCTIVA: Yes conjunctivae normal PUPIL: Yes Equal, round and reactive pupils present Neck/C-Spine: COMMON NORMALS: full ROM and no lymphadenopathy Chest: COMMONS NORMALS: normal inspection of the chest OTHER: He has mild anterior chest wall tenderness. No skin rashes, ecchymosis, subcutaneous emphysema or crepitance noted. Resp: COMMON NORMALS: normal respiratory effort, No retractions, No use of accessory muscles and clear to auscultation bilaterally AUSCULTATION: clear to auscultation bilaterally Cardio: COMMON NORMALS: regular rate, regular rhythm, No murmurs present (Cardio) and Peripheral pulses 2+ throughout RATE: regular rate RHYTHM: r egular rhythm PERIPHERAL PULSES: Peripheral pulses 2+ throughout GI: COMMON NORMALS: Normal to inspection, nondistended, normoactive bowel sounds present, Soft to palpation, non-tender, No hepatosplenomegaly present and no masses PALPATION: Yes Soft to palpation and Yes No hepatosplenomegaly present : COMMON NORMALS: Yes no CVA tenderness BLADDER/KIDNEY EXAM: Yes no CVA tenderness Back/Pelvis: COMMON NORMALS: no CVA tenderness, thoracic and lumbar spine normal to inspection, no thoracic nor lumbar tenderness and thoraco-lumbar ROM normal Extremity: COMMON NORMALS: normal to inspection, capillary refill normal, no joint enlargement, no clubbing, cyanosis or edema, no calf tenderness and no pedal edema Neuro: COMMON NORMALS: patient oriented x3, moves all extremities, no focal motor deficits and no sensory deficits noted Psych: COMMON NORMALS: mental status grossly normal Skin: COMMON NORMALS: no rashes or lesions noted, no wounds and turgor normal GENERAL SKIN EXAM: no rashes or lesions noted and turgor normal Course 2 Reevaluation(s): Reevaluation #1: Discussed with Dr. Castellanos who will make final disposition. Time: 22:10 Vital Signs: Vital signs: Vital Signs Temperature 97.7 F 06/02/24 17:09 Pulse Rate 75 06/02/24 21:30 Respiratory Rate 28 H 06/02/24 21:30 Blood Pressure 122/78 06/02/24 21:30 Pulse Oximetry 100 06/02/24 21:30 Oxygen Delivery Me thod Room Air 06/02/24 17:09 MDM - Nausea/Vomiting/Diarrhea Medical Decision Making This patient presented to our emergency department as noted in HPI. The patient's history of stool color change and chest pain is hard to reconcile as being similar origins. He looks very comfortable clinically. Will go ahead and ensure that there is no evidence of liver dysfunction etc. Will also ensure that his chest pain does not represent occult ACS etc. There are loss of R waves anteriorly noted on the resting EKG. He has no prior EKG available for comparison so we will have to trend his troponins and EKGs to ensure that there is no dynamic changes. Medical Records I reviewed the patient's medical records. Echocardiogram from 24 reviewed and showed trace tricuspid regurgitation but no other structural abnormalities. He had an ejection fraction of 64%. Lab Data 06/02/24 21:06/02/24: Radiology Impressions Chest X-Ray 06/02/24: IMPRESSION: Hyperinflated lungs suggestive of COPD, without focal consolidation. Laboratory Results WBC 5.95 10^3/uL (3.29-11.43) 06/02/24: RBC 5.25 10^6/uL (3.85-5.65) 06/02/24: Hgb 15.30 g/dL (11.27-16.99) 06/02/24: Hct 47.0 % (37-53) 06/02/24: MCV 89.5 fl (82-101) 06/02/24: MCH 29.1 pg (27-33) 06/02/24: MCHC 32.6 g/dL (30-55) 06/02/24: RDW 13.0 % (12.1-15.1) 06/02/24: Plt Count 256 10^3/cmm (157-399) 06/02/24: MPV 9.4 fL (7.4-10.4) 06/02/24: Neut % (Auto) 50.9 % 06/02/24: Lymph % (Auto) 31.3 % 06/02/24: Hand % (Auto) 13.1 % 06/02/24: Eos % (Auto) 3.7 % 06/02/24: Baso % (Auto) 0.8 % 06/02/24: Neut # (Auto) 3.03 10^3/uL (1.8-7.7) 06/02/24: Lymph # (Auto) 1.9 10^3/uL (0.8-4.8) 06/02/24: Hand # (Auto) 0.8 10^3/uL (0.2-0.9) 06/02/24: Eos # (Auto) 0.2 10^3/uL (0.0-0.8) 02/09/25 21:27 Baso # (Auto) 0.1 10^3/uL (0.0-0.1) 06/02/24 21: Nucleated RBC % (auto) 0 % 06/02/24: Nucleated RBCs # 0.0 /100WBC 06/02/24 21: Sodium 140 mmol/L (136-145) 06/02/24 21: Potassium 4.0 mmol/L (3.5-5.1) 06/02/24 21: Chloride 102 mmol/L (98-107) 06/02/24 21: Carbon Dioxide 28 mmol/L (22-29) 06/02/24: Anion Gap 14.0 (5-19) 06/02/24: BUN 13 mg/dL (8-23) 06/02/24: Creatinine 0.8 mg/dL (0.7-1.2) 06/02/24: GFR Calculation 97.0 mL/min (90-130) 06/02/24 21: Glucose 46 mg/dL (65-115) L 06/02/24: Calculated Osmolality 287 mOsm/kg (285-295) 06/02/24 21: Calcium 9.3 mg/dL (8.5-10.5) 06/02/24: Total Bilirubin 0.5 mg/dL (0.15-1.2) 06/02/24: AST 15 U/L (0-40) 06/02/24: ALT 17 U/L (0-41) 06/02/24: Alkaline Phosphatase 76 U/L (40-130) 06/02/24: Troponin T Baseline < 6 ng/L (0-15) 06/02/24: Total Protein 6.8 g/dL (6.6-8.7) 06/02/24: Albumin 4.1 g/dL (3.5-5.2) 06/02/24: Globulin 2.7 g/dL (1.3-4.6) 06/02/24: Lipase 67 U/L (13-60) H 06/02/24: EKG Data EKG 1: I personally reviewed and interpreted this EKG as follows: Computer generated interpretation: Contemporaneous review of resting EKG reveals ventricular rate of 69 bpm consistent with sinus rhythm. Normal MS interval, QRS duration, corrected QT interval. Normal axis. He has decreased R wave amplitude in V2 and V3 suggestive of possible anterior septal WI. No acute ST-T wave changes noted at this time. Discharge Plan Discharge Patient Disposition: Home Clinical Impression: Acholic stool Chest pain Qualifiers: Chest pain type: unspecified Qualified Code(s): R07.9 - Chest pain, unspecified Clinical Impression: (Ruled Out): Myocardial bridge Condition: Stable Prescriptions: New calcium polycarbophil [Fiber-Tabs] 625 mg tablet 1,250 mg PO BID Qty: 60 0RF No Action aspirin 81 mg tablet,delayed release (DR/EC) 81 mg PO DAILY Discharge Orders: Discharge ED (Routine); Ordered 06/02/24 Ordered By: Kai Castellanos Referrals: Refugio Sullivan FNP [Primary Care Provider] - 1-3 days Patient Instructions: Chest Pain (ED), High Fiber Diet (ED), Opioid Safety, Pain Management Activity Restrictions/Additional Instructions: Return for repeated episodes of chest pain, shortness of breath, vomiting, diarrhea, fever, other concerning symptoms. See your doctor this week. Call tomorrow for an appointment. Print Language: Nicaraguan Coding Level of Care Code ED Cyber Engineer for Chg Fwd Documented by User: Kai Castellanos DO 06/03/24 01:53 HPI - Nausea/Vomiting/Diarrhea 2 General: Chief complaint: Nausea/Vomiting/Diarrhea Stated complaint: n/v/d Time Seen by Provider: 06/02/24 20:56 Related Data Home Medications ?Medication ?Instructions ?Recorded ?Confirmed aspirin 81 mg tablet,delayed 81 mg PO DAILY 08/23/23 1 05/06/23 release Previous Rx's ?Medication ?Instructions ?Recorded calcium polycarbophil 625 mg 1,250 mg (2 x 625 mg) PO BID #60 06/02/24 tablet (Fiber-Tabs) tabs Allergies Allergy/AdvReac Type Severity Reaction Status Date / Time acetaminophen (From Tylenol) Allergy Unknown Verified 03/06/24 08:06 Sulfa (Sulfonamide Allergy Unknown Verified 03/06/24 08:06 Antibiotics) PFSH ED 2 PFSH: Medical History Myocardial bridge Dyslipidemia Dizziness Surgical History Hx of hernia repair Family History Father Valvular heart disease Mother Valvular heart disease Hypertension Diabetes Denies family history of Stroke Social History Smoking and tobacco/nicotine status: never used tobacco/nicotine Alcohol intake: never Substance/Drug Use: never Course 2 Vital Signs: Vital signs: Vital Signs Temperature 97.7 F 06/02/24 17:09 Pulse Rate 75 06/02/24 21:30 Respiratory Rate 28 H 06/02/24 21:30 Blood Pressure 122/78 06/02/24 21:30 Pulse Oximetry 100 06/02/24 21:30 Oxygen Delivery Me thod Room Air 06/02/24 17:09 MDM - Nausea/Vomiting/Diarrhea Medical Decision Making This patient presented to our emergency department as noted in HPI. The patient's history of stool color change and chest pain is hard to reconcile as being similar origins. He looks very comfortable clinically. Will go ahead and ensure that there is no evidence of liver dysfunction etc. Will also ensure that his chest pain does not represent occult ACS etc. There are loss of R waves anteriorly noted on the resting EKG. He has no prior EKG available for comparison. Patient checked out to me at shift change. He is no longer having any chest pain. His troponin is nondetectable. He has had pain on and off for 3 days. No diarrhea currently. He says his stools have been firm, just yellow. His liver enzymes are normal. No evidence of biliary obstruction. He wishes to go home. He is to return for any worsening symptoms. Lab Data 06/02/24 21:27 06/02/24 21:27 Radiology Impressions Chest X-Ray 06/02/24 21:07 IMPRESSION: Hyperinflated lungs suggestive of COPD, without focal consolidation. Laboratory Results WBC 5.95 10^3/uL (3.29-11.43) 06/02/24 21: RBC 5.25 10^6/uL (3.85-5.65) 06/02/24 21: Hgb 15.30 g/dL (11.27-16.99) 06/02/24 21: Hct 47.0 % (37-53) 06/02/24 21: MCV 89.5 fl (82-101) 06/02/24 21: MCH 29.1 pg (27-33) 06/02/24 21: MCHC 32.6 g/dL (30-55) 06/02/24: RDW 13.0 % (12.1-15.1) 06/02/24: Plt Count 256 10^3/cmm (157-399) 06/02/24: MPV 9.4 fL (7.4-10.4) 06/02/24: Neut % (Auto) 50.9 % 06/02/24: Lymph % (Auto) 31.3 % 06/02/24: Hand % (Auto) 13.1 % 06/02/24: Eos % (Auto) 3.7 % 06/02/24: Baso % (Auto) 0.8 % 06/02/24: Neut # (Auto) 3.03 10^3/uL (1.8-7.7) 06/02/24: Lymph # (Auto) 1.9 10^3/uL (0.8-4.8) 06/02/24: Hand # (Auto) 0.8 10^3/uL (0.2-0.9) 06/02/24: Eos # (Auto) 0.2 10^3/uL (0.0-0.8) 06/02/24: Baso # (Auto) 0.1 10^3/uL (0.0-0.1) 06/02/24: Nucleated RBC % (auto) 0 % 06/02/24: Nucleated RBCs # 0.0 /100WBC 06/02/24 21: Sodium 140 mmol/L (136-145) 06/02/24 21:27 Potassium 4.0 mmol/L (3.5-5.1) 06/02/24 21:27 Chloride 102 mmol/L (98-107) 06/02/24 21:27 Carbon Dioxide 28 mmol/L (22-29) 06/02/24 21: Anion Gap 14.0 (5-19) 06/02/24 21:27 BUN 13 mg/dL (8-23) 06/02/24 21:27 Creatinine 0.8 mg/dL (0.7-1.2) 06/02/24 21: GFR Calculation 97.0 mL/min (90-130) 06/02/24 21: Glucose 46 mg/dL (65-115) L 06/02/24 21: Calculated Osmolality 287 mOsm/kg (285-295) 06/02/24 21: Calcium 9.3 mg/dL (8.5-10.5) 06/02/24 21: Total Bilirubin 0.5 mg/dL (0.15-1.2) 06/02/24 21:27 AST 15 U/L (0-40) 06/02/24 21:27 ALT 17 U/L (0-41) 06/02/24 21: Alkaline Phosphatase 76 U/L (40-130) 06/02/24 21: Troponin T Baseline < 6 ng/L (0-15) 06/02/24 21:27 Total Protein 6.8 g/dL (6.6-8.7) 06/02/24 21:27 Albumin 4.1 g/dL (3.5-5.2) 06/02/24 21:27 Globulin 2.7 g/dL (1.3-4.6) 06/02/24 21:27 Lipase 67 U/L (13-60) H 06/02/24 21:27 All radiology interpretation(s) finalized by discharge Discharge Plan Discharge Patient Disposition: Home Clinical Impression: Acholic stool Chest pain Qualifiers: Chest pain type: unspecified Qualified Code(s): R07.9 - Chest pain, unspecified Clinical Impression: (Ruled Out): Myocardial bridge Condition: Stable Prescriptions: New calcium polycarbophil [Fiber-Tabs] 625 mg tablet 1,250 mg PO BID Qty: 60 0RF No Action aspirin 81 mg tablet,delayed release (DR/EC) 81 mg PO DAILY Discharge Orders: Discharge ED (Routine); Ordered 06/02/24 Ordered By: Kai Castellanos Referrals: Refugio Sullivan FNP [Primary Care Provider] - 1-3 days Patient Instructions: Chest Pain (ED), High Fiber Diet (ED), Opioid Safety, Pain Management Activity Restrictions/Additional Instructions: Return for repeated episodes of chest pain, shortness of breath, vomiting, diarrhea, fever, other concerning symptoms. See your doctor this week. Call tomorrow for an appointment. Print Language: Nicaraguan Coding Level of Care Code ED Cyber Engineer for Buddy Garber
--- NOTE | 2024-06-02 21:07 | XRR_ITS ---
PROCEDURE INFORMATION: Exam: XR Chest Exam date and time: 06/02/2024 9:16 PM Age: 63 years old Clinical indication: Chest pressure; Prior surgery; Surgery date: 6+ months; Surgery type: Valve replacement; Chest pain TECHNIQUE: Imaging protocol: Radiologic exam of the chest. Views: 1 view. COMPARISON: No relevant prior studies available. FINDINGS: Lungs: Hyperinflated lungs. Punctate calcified granulomas in the right mid to lower lung zone. No focal consolidation. Pleural spaces: Unremarkable. No pleural effusion. No pneumothorax. Heart/Mediastinum: Unremarkable. No cardiomegaly. Bones/joints: Unremarkable. XR/XR chest 1V portable [id number] IMPRESSION: Hyperinflated lungs suggestive of COPD, without focal consolidation.
[2024-06-02 21:30] VITALS: BP 122/78; PULSE 75; RESP 28; O2SAT 100
[2024-06-02 21:34] LABS: Basophils # 0.1 10^3/uL (0.0-0.1); Basophils % 0.8 %; Eosinophils # 0.2 10^3/uL (0.0-0.8); Eosinophils % 3.7 %; Lymphocytes # 1.9 10^3/uL (0.8-4.8); Lymphocytes % 31.3 %; Mean Corpuscular HGB Conc 32.6 g/dL (30-55); Mean Corpuscular Hemoglobin 29.1 pg (27-33); Mean Corpuscular Volume 89.5 fl (82-101); Mean Platelet Volume 9.4 fL (7.4-10.4); Monocytes # 0.8 10^3/uL (0.2-0.9); Monocytes % 13.1 %; Neutrophils # 3.03 10^3/uL (1.8-7.7); Neutrophils % 50.9 %; Nucleated Red Blood Cells % 0 %; Platelet Count 256 10^3/cmm (157-399); Red Blood Count 5.25 10^6/uL (3.85-5.65); White Blood Count 5.95 10^3/uL (3.29-11.43)
[2024-06-02 21:52] LABS: Troponin(5th) Baseline < 6 ng/L (0-15)
[2024-06-02 21:54] LABS: Alanine Aminotransferase 17 U/L (0-41); Albumin Level 4.1 g/dL (3.5-5.2); Alkaline Phosphatase 76 U/L (40-130); Aspartate Amino Transferase 15 U/L (0-40); Blood Urea Nitrogen 13 mg/dL (8-23); Calcium 9.3 mg/dL (8.5-10.5); Carbon Dioxide 28 mmol/L (22-29); Chloride 102 mmol/L (98-107); Creatinine Clr Calc Pharmacy 97.8589; Globulin 2.7 g/dL (1.3-4.6); Glucose 46 mg/dL (65-115); Lipase 67 U/L (13-60); Osmolality Calculated 287 mOsm/kg (285-295); Sodium 140 mmol/L (136-145); Total Bilirubin 0.5 mg/dL (0.15-1.2); Total Protein 6.8 g/dL (6.6-8.7)
[2024-06-02 22:12] LABS: Slide Review Slide Review Perform
[2024-06-02 22:49] VITALS: BP 119/70; PULSE 77; O2SAT 100
== END 2024-06-02 22:50 | disposition home or self-care (01) ==
PROVIDERS: Emergency Medicine; Emergency Provider Emergency Medicine; PCP Nurse Practitioner Family
DX: R07.9 Chest pain, unspecified (principal); Z03.89 Encounter for observation for other suspected diseases and conditions ruled out; Z79.82 Long term (current) use of aspirin; E78.5 Hyperlipidemia, unspecified
CPT/HCPCS: 36415; 71045; 80053; 83690; 84484; 85025; 93005; 99285